=== PATIENT | female | born 1990 | race Caucasian/White ===

== ENCOUNTER 2025-08-13 22:23 | Emergency (ER) | payer MEDICAID ==
[~2025-08-13] VITALS: Ht 162.6 cm; Wt 70.5 kg
[2025-08-13 22:29] VITALS: BP 135/83; PULSE 105; RESP 16; TEMP 97.7; O2SAT 96
== END 2025-08-14 01:01 | disposition left against medical advice (07) ==
LOC: EMS 22:26
DX: M79.671 Pain in right foot (principal); M79.672 Pain in left foot
CPT/HCPCS: 99281; Z7502